=== PATIENT | male | born 1985 | race Caucasian/White ===

== ENCOUNTER 2016-09-12 20:10 | Emergency (ER) | payer OTHER ==
[~2016-09-12] VITALS: Ht 175.3 cm; Wt 89.6 kg
[~2016-09-12 20:10] MED LIST: PERCOCET 5/31 TABLET PO
[2016-09-12 20:52] LABS: CHLORIDE 107 mEq/L (99-109); POTASSIUM 4.4 mEq/L (3.7-5.4); SODIUM 143 mEq/L (136-147)
[2016-09-12 20:54] LABS: GLUCOSE 93 mg/dL (70-99)
[2016-09-12 20:55] LABS: ANION GAP 11 MEQ/L (2-14)
[2016-09-12 20:57] LABS: SERUM ETHYL ALCOHOL 201 mg/dL
[2016-09-12 20:58] LABS: GFR ESTIMATE (CALCULATED) > 59 mL/min/
[2016-09-12 20:59] LABS: UREA NITROGEN (BUN) 8 mg/dL (9-23)
[2016-09-12 21:00] LABS: HEMATOCRIT 50.8 % (38.0-50.0); MCH 30.9 PG (29.0-34.0); MCHC 34.1 G/DL (30.0-36.0); MCV 90.7 FL (86-99); MEAN PLAT.VOLUME 8.8 uM^3 (9.0-12.4); PLATELET COUNT 283 K/uL (156-360); RBC DIS.WIDTH-CV 13.8 % (11.8-14.6); RBC DIS.WIDTH-SD 46.1 % (39-53); WHITE BLOOD COUNT 8.4 K/uL (4.1-10.2)
[2016-09-12 21:17] LABS: AMPHETAMINE NEGATIVE (500 ng/mL); BARBITURATES NEGATIVE (200 ng/mL); BENZODIAZEPINES NEGATIVE (150 ng/mL); COCAINE NEGATIVE (150 ng/mL); METHADONE NEGATIVE (200 ng/mL); METHAMPHETAMINE NEGATIVE (500 ng/mL); OPIATES (MORPHINE) NEGATIVE (100 ng/mL); OXYCODONE NEGATIVE (100 ng/mL); PHENCYCLIDINE NEGATIVE (25 ng/mL); THC CANNABINOIDS NEGATIVE (50 ng/mL); TRICYCLIC ANTIDEPRESSANTS NEGATIVE (300 ng/mL)
[2016-09-12 21:18] LABS: INTERNAL CONTROLS VALID? YES; PROPOXYPHENE NEGATIVE (300 ng/mL)
[2016-09-13 00:27] VITALS: BP 119/68
== END 2016-09-13 00:28 | disposition home or self-care (01) ==
LOC: EME 20:10
DX: F10.129 Alcohol abuse with intoxication, unspecified (principal); F32.9 Major depressive disorder, single episode, unspecified; F43.22 Adjustment disorder with anxiety; Y90.7 Blood alcohol level of 200-239 mg/100 ml; F17.200 Nicotine dependence, unspecified, uncomplicated
CPT/HCPCS: 80048; 85027; 90837; 99281; 99285; G0480